=== PATIENT | male | born 1945 | race Caucasian/White ===

== ENCOUNTER 2017-12-20 10:04 | Outpatient (CLI) | payer MEDICARE, OTHER ==
[2015-07-02 15:48] VITALS: BP 163/84
[2017-12-20 10:16] LABS: APPEARANCE,URINE Cloudy (CLEAR); COLOR,URINE Red (YELLOW); OCCULT BLOOD,URINE 2+ (NEGATIVE); PH URINE 8.5 (5.0 - 8.0); UROBILINOGEN URINE >=8.0 Eu (0.2-1.0)
[2017-12-20 10:19] LABS: AMORPHOUS SEDIMENT,UR FEW (NEGATIVE)
== END 2017-12-20 10:06 ==
LOC: LABRHC 10:04
PROVIDERS: ATTEND Family Medicine
DX: N39.0 Urinary tract infection, site not specified (principal)
CPT/HCPCS: 81002; 87086; 87186